=== PATIENT | female | born 1995 | race American Indian/Alaskan Native ===

== ENCOUNTER 2019-10-27 18:33 | Emergency (ER) | payer SELFPAY ==
[2019-10-27 18:46] VITALS: BP 126/67
--- NOTE | 2019-10-27 18:46 | Emergency Department Report ---
Chief Complaint: Anxiety Stated Complaint: SOB Time Seen by Provider: 10/27/19 18:42 - HPI History of Present Illness: This is a 23 y.o. F. that presents to the ER with palpitations for several minutes. PMH of anxiety Patient prescribed lorazepam 2 weeks ago in ER and afraid to take medication because she had alcohol drinks around 0530 this morning. Denies chest pain, SOB, nausea/vomiting, weakness, or dyspnea. - Exam Vital Signs: Vital Signs 10/27/19 18:39 Temperature 97.9 F Pulse Rate 91 H Respiratory 22 Rate Blood Pressure 126/67 O2 Sat by Pulse 100 Oximetry MSE screening note: Focused history and physical exam performed. Due to findings the following was ordered: ED Disposition for MSE Condition: Stable
[2019-10-27] MEDS ORDERED: SODIUM CHLORIDE 0.9% 1000 ML 1,000 ML IV ONE (20:21)
[2019-10-27 20:44] LABS: Basophils % (Auto) 0.5 % (0.0-1.8); Eosinophils % (Auto) 0.4 % (0.0-4.3); Hematocrit 44.6 % (30.3-42.9); Hemoglobin 14.4 gm/dl (10.1-14.3); Lymphocytes # (Auto) 1.5 K/mm3 (1.2-5.4); Lymphocytes % (Auto) 14.4 % (13.4-35.0); Mean Corpuscular HGB Conc 32 % (30-34); Mean Corpuscular Volume 91 fl (79-97); Monocytes # (Auto) 0.7 K/mm3 (0.0-0.8); Monocytes % (Auto) 6.9 % (0.0-7.3); Platelet Count 343 K/mm3 (140-440); Red Blood Count 4.92 M/mm3 (3.65-5.03); Red Cell Distribution Width 13.7 % (13.2-15.2)
[2019-10-27 21:05] LABS: Alanine Aminotransferase 9 units/L (7-56); Albumin 4.6 g/dL (3.9-5); BUN/Creatinine Ratio 13; Blood Urea Nitrogen 9 mg/dL (7-17); Calcium 9.8 mg/dL (8.4-10.2); Hemolysis Index 17
--- NOTE | 2019-10-27 21:18 | XRay Report ---
CHEST 1 VIEW 9:09 PM INDICATION / CLINICAL INFORMATION: Dyspnea and palpitations. COMPARISON: None available. FINDINGS: SUPPORT DEVICES: None. HEART / MEDIASTINUM: The heart size and pulmonary vasculature are normal. LUNGS / PLEURA: No significant pulmonary or pleural abnormality. No pneumothorax. ADDITIONAL FINDINGS: No significant additional findings. IMPRESSION: No acute findings. Signer Name: Jose Koch MD Signed: 10/27/2019 9:13 PM Workstation Name: [id number]
[2019-10-27 22:07] LABS: Bacteria,Urine 1+ /HPF (Negative); Bilirubin,Urine NEG (Negative); Blood,Urine NEG (Negative); Color,Urine Straw (Yellow); Protein,Urine <15 mg/dL mg/dL (Negative); Urobilinogen,Urine < 2.0 mg/dL (<2.0)
[2019-10-27 22:08] LABS: Amphetamine Screen,Urine PRESUMPTIVE NEGATIVE; Benzodiazepines Screen,Urine PRESUMPTIVE NEGATIVE; Cannabinoid Screen,Urine PRESUMPTIVE NEGATIVE; Cocaine Screen,Urine PRESUMPTIVE NEGATIVE; Methadone Screen,Urine PRESUMPTIVE NEGATIVE; Opiate Screen,Urine PRESUMPTIVE NEGATIVE
--- NOTE | 2019-10-27 22:41 | Emergency Department Report ---
ED General Adult HPI - General Chief complaint: Anxiety Stated complaint: SOB Time Seen by Provider: 10/27/19 18:42 Source: patient Mode of arrival: Ambulatory Limitations: No Limitations - History of Present Illness Initial comments: Patient is a 23-year-old female with a history of chronic anxiety who presented to the ED with persistent chest tightness, palpitations, throat tightness and shortness of breath for the last 2 hours. Patient states that the symptoms began while she was driving and she decided to come to the ED for evaluation. Patient had stated that she has a prescription of lorazepam 0.5 mg to be taken as needed for anxiety but was afraid to take the medicine because she had been drinking alcohol for over 8 hours and woke up after sleeping for over 8 hours and was scared that alcohol may still be in her system. Patient stated that the last time she took the medicine was about 2 weeks ago. Patient states that she occasionally has felt the symptoms but not palpitations or tachycardia. Patient denies dizziness, syncope, chest pain, abdominal pain, nausea, vomiting, fever, chills, cough, sore throat, dysuria, urinary frequency and urgency, headache or change in vision and diaphoresis. MD Complaint: chest tightness; palpitations; throat tightness; anxiety -: Sudden, hour(s) (2) Location: chest Radiation: non-radiation Severity scale (0 -10): 2 Quality: dull, constant Consistency: intermittent, now resolved Improves with: none Worsens with: none Associated Symptoms: denies other symptoms, shortness of breath. denies: confusion, chest pain, cough, diaphoresis, fever/chills, headaches, loss of appetite, malaise, nausea/vomiting, rash, seizure, syncope, weakness Treatments Prior to Arrival: none - Related Data Previous Rx's Medication Instructions Recorded Last Taken Type hydrOXYzine PAMOATE [Vistaril] 25 mg PO Q6HR PRN #30 capsule 10/27/19 Unknown Rx Allergies Allergy/AdvReac Type Severity Reaction Status Date / Time No Known Allergies Allergy Unverified 10/27/19 18:45 ED Review of Systems ROS: Stated complaint: SOB Other details as noted in HPI Constitutional: denies: chills, fever Eyes: denies: eye pain, eye discharge, vision change ENT: denies: ear pain, throat pain Respiratory: shortness of breath. denies: cough, wheezing Cardiovascular: palpitations. denies: chest pain Endocrine: no symptoms reported Gastrointestinal: denies: abdominal pain, nausea, diarrhea Genitourinary: denies: urgency, dysuria, discharge Musculoskeletal: denies: back pain, joint swelling, arthralgia Skin: denies: rash, lesions Neurological: denies: headache, weakness, paresthesias Psychiatric: anxiety. denies: depression, auditory hallucinations, visual hallucinations, homicidal thoughts, suicidal thoughts Hematological/Lymphatic: denies: easy bleeding, easy bruising ED Past Medical Hx - Past Medical History Previous Medical History?: Yes Hx Psychiatric Treatment: Yes (anxiety) - Social History Smoking Status: Never Smoker Substance Use Type: Alcohol - Medications Home Medications: Home Medications Medication Instructions Recorded Confirmed Last Taken Type hydrOXYzine PAMOATE [Vistaril] 25 mg PO Q6HR PRN #30 capsule 10/27/19 Unknown Rx ED Physical Exam - General Limitations: No Limitations General appearance: alert, in no apparent distress - Head Head exam: Present: atraumatic, normocephalic, normal inspection - Eye Eye exam: Present: normal appearance, PERRL, EOMI Pupils: Present: normal accommodation - ENT ENT exam: Present: normal exam, normal orophraynx, mucous membranes moist, TM's normal bilaterally, normal external ear exam - Neck Neck exam: Present: normal inspection, full ROM - Respiratory Respiratory exam: Present: normal lung sounds bilaterally. Absent: respiratory distress, wheezes, rales, rhonchi, chest wall tenderness, accessory muscle use, prolonged expiratory - Cardiovascular Cardiovascular Exam: Present: regular rate, normal rhythm, normal heart sounds. Absent: systolic murmur, diastolic murmur, rubs, gallop - GI/Abdominal GI/Abdominal exam: Present: soft, normal bowel sounds. Absent: tenderness, guarding, hyperactive bowel sounds, hypoactive bowel sounds, organomegaly - Extremities Exam Extremities exam: Present: normal inspection, full ROM, normal capillary refill - Back Exam Back exam: Present: normal inspection, full ROM. Absent: CVA tenderness (L), pa raspinal tenderness, vertebral tenderness - Neurological Exam Neurological exam: Present: alert, oriented X3, CN II-XII intact, normal gait, reflexes normal - Psychiatric Psychiatric exam: Present: normal affect, normal mood, anxious - Skin Skin exam: Present: warm, dry, intact, normal color. Absent: rash ED Course Vital Signs 10/27/19 18:39 Temperature 97.9 F Pulse Rate 91 H Respiratory 22 Rate Blood Pressure 126/67 O2 Sat by Pulse 100 Oximetry ED Medical Decision Making - Lab Data Result diagrams: 10/27/19 20:26 10/27/19 20:26 - EKG Data EKG shows normal: sinus rhythm Rate: normal - EKG Data Interpretation: normal EKG 10/27/19 23:47 The EKG shows normal sinus rhythm with a ventricular rate of 69 bpm, and no ST or T wave abnormalities. - Radiology Data Radiology results: report reviewed, image reviewed Chest x-ray shows no acute cardiopulmonary abnormalities or pneumonitis. - Medical Decision Making This is a 23-year-old female with a history of chronic anxiety who presented to the ED with persistent chest tightness, palpitations, throat tightness and shortness of breath for the last 2 hours. Patient states that the symptoms began while she was driving and she decided to come to the ED for evaluation. Patient had stated that she has a prescription of lorazepam 0.5 mg to be taken as needed for anxiety but was afraid to take the medicine because she had been drinking alcohol for over 8 hours and woke up after sleeping for over 8 hours and was scared that alcohol may still be in her system. Patient stated that the last time she took the medicine was about 2 weeks ago. In the ED, patient is alert and oriented x3 and is not in distress with normal vital signs. Lab test results were reviewed and are all nonactionable. EKG shows normal sinus rhythm with ventricular rate of 69 bpm, and no ST or T wave abnormalities. Chest x-ray shows no acute cardiopulmonary abnormalities or pneumonitis. Patient also received normal saline 1 L IV bolus in the ED. On reevaluation, patient felt better and was discharged home on Vistaril and advised to follow-up with her primary care physician in 5 to 7 days for reevaluation. Patient was advised to return to the ED immediately if symptoms get worse. - Differential Diagnosis anxiety; panic attack; pneumonia; bronchitis Critical care attestation.: If time is entered above; I have spent that time in minutes in the direct care of this critically ill patient, excluding procedure time. ED Disposition Clinical Impression: Anxiety as acute reaction to exceptional stress, Panic attacks, Shortness of breath Disposition: DC-01 TO HOME OR SELFCARE Is pt being admited?: No Does the pt Need Aspirin: No Condition: Stable Instructions: Dyspnea (ED), Anxiety (ED) Additional Instructions: All lab test results and imaging reports showed no acute abnormalities. Therefore take your regular anxiety medications for anxiety, avoid alcohol consumption and follow-up with your primary care physician in 5 to 7 days for reevaluation. Return to the ED immediately if symptoms get worse. Prescriptions: hydrOXYzine PAMOATE [Vistaril] 25 mg PO Q6HR PRN #30 capsule PRN Reason: Anxiety Referrals: [facility] [Outside] - 3-5 Days Time of Disposition: 22:39 Print Language: YI
== END 2019-10-27 22:50 | disposition home or self-care (01) ==
LOC: ED 18:33
DX: F41.9 Anxiety disorder, unspecified (principal); F41.0 Panic disorder [episodic paroxysmal anxiety]; R06.02 Shortness of breath
CPT/HCPCS: 36415; 71045; 80053; 80307; 81001; 82693; 84484; 84703; 85025; 93005; 93010; 99284; J7030